=== PATIENT | male | born 1985 | race American Indian/Alaskan Native ===

== ENCOUNTER 2017-05-10 16:27 | Emergency (ER) | payer MEDICAID ==
[2017-05-10] MEDS ORDERED: PERCOCET 5/325 PO ONE (19:47)
[2017-05-10] MEDS ORDERED: FLEXERIL PO ONE (19:47)
[2017-05-10] MEDS ORDERED: TORADOL IM ONE (19:47)
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
[2017-05-10 20:42] VITALS: BP 168/114
--- NOTE | 2017-05-10 20:52 | XRay Report ---
FINAL REPORT PROCEDURE: XR KNEE BILAT 3V TECHNIQUE: Bilateral knee radiographs, 3 views. HISTORY: fall, knee pain COMPARISON: No prior studies are available for comparison. FINDINGS: Fracture (s) and/or Dislocation(s): None . Joint space(s): Normal. Soft tissues: Normal. Bone mineralization: Normal. Foreign bodies: None. IMPRESSION: Normal Examination.
--- NOTE | 2017-05-10 20:53 | XRay Report ---
FINAL REPORT PROCEDURE: XR PELVIS 1-2V TECHNIQUE: Pelvis radiograph, AP view. CPT 08848 HISTORY: fall, pelvic pain COMPARISON: No prior studies are available for comparison. FINDINGS: Fracture(s): None . Joint spaces: Moderately advanced degenerative change of the right and left hips. There are abnormal densities of the femoral heads with probable avascular necrosis. There spurring of the femoral heads and acetabula.. Soft tissues: Normal . Foreign bodies: None . Bone mineralization: Normal . 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 No acute fracture seen.
== END 2017-05-10 22:01 | disposition home or self-care (01) ==
LOC: ED 16:27
DX: M25.561 Pain in right knee (principal); M25.562 Pain in left knee; M25.551 Pain in right hip; M25.552 Pain in left hip; W10.9XXA Fall (on) (from) unspecified stairs and steps, initial encounter; Y93.9 Activity, unspecified; Y92.9 Unspecified place or not applicable; Y99.9 Unspecified external cause status
CPT/HCPCS: 72170; 73562; 96372; 99283; J1885

== ENCOUNTER 2017-06-16 18:08 | Emergency (ER) | payer MEDICAID ==
--- NOTE | 2017-06-16 18:35 | Emergency Department Report ---
Stated Complaint: PISSIBLE BITE UNDER ARM Time Seen by Provider: 06/16/17 18:33 - HPI History of Present Illness: PT states he felt a painful bump under his R arm a few hours ago. - ROS Review of Systems: - fever - chills + bump under R axilla, pt states it feels warm - Exam Physical Exam: PT looks, well, non toxic steady gait with cane R axilla with indurated area MSE screening note: Focused history and physical exam performed. Due to findings the following was ordered: ED Disposition for MSE Condition: Stable
[2017-06-17] MEDS ORDERED: NORCO 5/325 PO ONE (02:09)
[2017-06-17] MEDS ORDERED: TORADOL IM ONE (02:09)
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
[2017-06-17 03:19] VITALS: BP 140/86
== END 2017-06-17 03:12 | disposition home or self-care (01) ==
LOC: ED 18:08
DX: K02.9 Dental caries, unspecified (principal); K05.10 Chronic gingivitis, plaque induced; R59.1 Generalized enlarged lymph nodes; F20.9 Schizophrenia, unspecified; J45.909 Unspecified asthma, uncomplicated; I10 Essential (primary) hypertension; F17.200 Nicotine dependence, unspecified, uncomplicated
CPT/HCPCS: 96372; 99282; J1885

== ENCOUNTER 2017-08-08 17:14 | Emergency (ER) | payer MEDICAID ==
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
[2017-08-08 18:58] LABS: Basophils % (Auto) 0.4 % (0.0-1.8); Eosinophils % (Auto) 2.6 % (0.0-4.3); Hemoglobin 13.5 gm/dl (11.8-15.2); Mean Corpuscular HGB Conc 34 % (32-34); Mean Corpuscular Hemoglobin 31 pg (28-32); Mean Corpuscular Volume 92 fl (84-94); Platelet Count 231 K/mm3 (140-440); Red Blood Count 4.35 M/mm3 (3.65-5.03); Red Cell Distribution Width 13.2 % (13.2-15.2); White Blood Count 3.8 K/mm3 (4.5-11.0)
[2017-08-08 19:23] LABS: Alanine Aminotransferase 34 units/L (7-56); Albumin 4.7 g/dL (3.9-5); Albumin/Globulin Ratio 1.5 %; Alkaline Phosphatase 94 units/L (35-129); Anion Gap 20 mmol/L; BUN/Creatinine Ratio 7; Blood Urea Nitrogen 4 mg/dL (9-20); Calcium 9.8 mg/dL (8.4-10.2); Carbon Dioxide 27 mmol/L (22-30); Glucose 133 mg/dL (75-100); Potassium 3.6 mmol/L (3.6-5.0); Sodium 139 mmol/L (137-145); Total Protein 7.8 g/dL (6.3-8.2)
[2017-08-08 21:45] LABS: Urine Drugs of Abuse Note Disclamer
[2017-08-08 22:13] LABS: Bilirubin,Urine NEG (Negative); Blood,Urine NEG (Negative); Ketones,Urine NEG (Negative); Leukocyte Esterase,Urine NEG (Negative); Nitrite,Urine NEG (Negative); Protein,Urine <15 mg/dL mg/dL (Negative); Urobilinogen,Urine < 2.0 mg/dL (<2.0)
[2017-08-08 22:51] VITALS: BP 124/81
== END 2017-08-09 02:30 ==
LOC: ED 17:14
DX: F23 Brief psychotic disorder (principal); R45.851 Suicidal ideations; I10 Essential (primary) hypertension; F20.9 Schizophrenia, unspecified; J45.909 Unspecified asthma, uncomplicated; F17.200 Nicotine dependence, unspecified, uncomplicated; Z91.018 Allergy to other foods
CPT/HCPCS: 36415; 80053; 80307; 81001; 85025; 99285; G0480; 80320

== ENCOUNTER 2017-08-29 23:39 | Emergency (ER) | payer MEDICAID ==
[2017-08-30 00:43] VITALS: BP 128/86
--- NOTE | 2017-08-30 02:10 | XRay Report ---
FINAL REPORT EXAM: XR KNEE 1-2V RT HISTORY: Rt knee pain SP fall COMPARISON: April 2017 FINDINGS: Two views of right knee obtained. Bony structures are intact. There is a stable tiny 2 millimeter bony fragment at the inferior margin the patella. This may reflect a tiny intra-articular loose body. Joint spaces are preserved. No acute fracture dislocation. IMPRESSION: No acute fracture.
--- NOTE | 2017-08-30 02:11 | XRay Report ---
FINAL REPORT EXAM: XR HIP 2-3V RT HISTORY: Hip pain post fall COMPARISON: None available. FINDINGS: AP view of the pelvis and frogleg view of the right hip obtained. Severe narrowing of the bilateral hip joint spaces with prominent osteophyte along the femoral necks and acetabular rims. Prominent sclerosis along the articular surfaces of the femoral heads and acetabular rims. Mild flattening of the right femoral head. Prominent subchondral cyst formation. No acute fracture dislocation. IMPRESSION: Severe degenerative changes of bilateral hips similar prior study. Minimal flattening of the right femoral head similar prior study. Underlying AVN is not excluded. No definite acute fracture dislocation. No change from prior study.
== END 2017-08-30 04:30 | disposition left against medical advice (07) ==
LOC: ED 23:39
DX: M79.604 Pain in right leg (principal); Z53.21 Procedure and treatment not carried out due to patient leaving prior to being seen by health care provider

== ENCOUNTER 2017-09-15 21:15 | Emergency (ER) | payer MEDICAID ==
[2017-09-16] MEDS ORDERED: MOTRIN PO ONE (07:24)
[2017-09-16] MEDS ORDERED: NORCO 5/325 PO ONE (07:24)
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
--- NOTE | 2017-09-16 08:22 | XRay Report ---
BILATERAL HIPS WITH PELVIS, 3 VIEWS: History: Bilateral hip pain Findings: Bone mineralization is within normal limits. There is no evidence for fracture, dislocation or pelvic diastasis. Severe osteoarthritic changes are identified at both hips which appears stable since 08/30/17. There are likely areas of osteonecrosis in both femoral heads. No acute fracture or malalignment is appreciated Impression: Advanced chronic arthritic changes in both hips with probable osteonecrosis. No significant change is demonstrated since 09/06/17.
[2017-09-16 09:59] VITALS: BP 121/84
== END 2017-09-16 10:04 | disposition home or self-care (01) ==
LOC: ED 21:15
DX: M54.5 Low back pain (principal); M25.552 Pain in left hip; M25.551 Pain in right hip; F20.9 Schizophrenia, unspecified; J45.909 Unspecified asthma, uncomplicated; M10.9 Gout, unspecified; I10 Essential (primary) hypertension; G89.29 Other chronic pain; F17.200 Nicotine dependence, unspecified, uncomplicated; Z91.018 Allergy to other foods
CPT/HCPCS: 73521; 99283

== ENCOUNTER 2018-04-28 23:24 | Emergency (ER) | payer MEDICAID ==
[2018-04-29] MEDS ORDERED: ZOFRAN ODT PO ONE (00:42)
[2018-04-29 01:05] LABS: Basophils % (Auto) 0.2 % (0.0-1.8); Eosinophils % (Auto) 0.5 % (0.0-4.3); Hemoglobin 13.9 gm/dl (11.8-15.2); Lymphocytes # (Auto) 1.1 K/mm3 (1.2-5.4); Mean Corpuscular HGB Conc 35 % (32-34); Mean Corpuscular Hemoglobin 34 pg (28-32); Mean Corpuscular Volume 96 fl (84-94); Monocytes # (Auto) 0.4 K/mm3 (0.0-0.8); Monocytes % (Auto) 8.3 % (0.0-7.3); Platelet Count 222 K/mm3 (140-440); Red Blood Count 4.14 M/mm3 (3.65-5.03); Red Cell Distribution Width 12.6 % (13.2-15.2)
[2018-04-29 01:20] LABS: BUN/Creatinine Ratio 15; Blood Urea Nitrogen 12 mg/dL (9-20); Calcium 10.1 mg/dL (8.4-10.2); Hemolysis Index 1
[2018-04-29 02:14] LABS: Bilirubin,Urine NEG (Negative); Blood,Urine NEG (Negative); Color,Urine Yellow (Yellow); Protein,Urine <15 mg/dL mg/dL (Negative); RBC,Urine < 1.0 /HPF (0.0-6.0); Urobilinogen,Urine < 2.0 mg/dL (<2.0)
[2018-04-29 02:23] LABS: Amphetamine Screen,Urine PRESUMPTIVE NEGATIVE; Benzodiazepines Screen,Urine PRESUMPTIVE NEGATIVE; Methadone Screen,Urine PRESUMPTIVE NEGATIVE; Opiate Screen,Urine PRESUMPTIVE NEGATIVE
[2018-04-29 02:36] LABS: Cannabinoid Screen,Urine PRESUMPTIVE POSITIVE; Cocaine Screen,Urine PRESUMPTIVE POSITIVE
[2018-04-29] MEDS ORDERED: ULTRAM PO ONE (10:20)
--- NOTE | 2018-04-29 10:24 | Emergency Department Report ---
Chief Complaint: Abdominal Pain Stated Complaint: ABD PAIN/DRUG REHAB Time Seen by Provider: 04/29/18 10:09 - HPI History of Present Illness: 32-year-old Lebanese male presents to the emergency department with a complaint of a few days of upper abdominal pain, nausea and vomiting. The patient admits to drinking heavily recently, while taking his psychiatric medications. He does have a history of previous pancreatitis. He also complains of chronic hip pain with a history of avascular necrosis and says that he missed his recent appointments through [place] regarding this. He has not taken anything for her symptoms. Presentation. He says that the nausea and vomiting has improved since getting Zofran through triage. - ROS Review of Systems: Positive for abdominal pain, nausea, vomiting, hip pain Negative for fever, dysuria, chest pain, shortness of breath - Exam Vital Signs: Vital Signs 04/28/18 04/29/18 04/29/18 23:43 00:25 06:50 Temperature 98.9 F 98.9 F 97.8 F Pulse Rate 121 H 117 H 92 H Respiratory 24 18 20 Rate Blood Pressure 123/69 123/69 118/86 O2 Sat by Pulse 97 96 97 Oximetry 04/29/18 06:56 Temperature 97.8 F Pulse Rate 92 H Respiratory 20 Rate Blood Pressure 118/86 O2 Sat by Pulse 97 Oximetry Physical Exam: Heart and lungs sounds are normal to auscultation. Mild tachycardia. There is some upper abdominal tenderness to palpation. MSE screening note: Focused history and physical exam performed. Due to findings the following was ordered: Patient's labs are unremarkable as far except for some mild dehydration and a urine drugs positive for cocaine. Patient also appears to have some elevated blood sugar levels from about 10 hours ago without any history of diabetes. I have added LFTs and lipase, an Accu-Chek. X-rays of the abdomen and bilateral hips. ED Medical Decision Making - Lab Data Result diagrams: 04/29/18 00:33 04/29/18 00:33 ED Disposition for MSE Condition: Stable Referrals: PRIMARY CARE, [Primary Care Provider] - 3-5 Days
[2018-04-29 10:45] LABS: Alanine Aminotransferase 38 units/L (7-56); Albumin 4.6 g/dL (3.9-5); Lipase 27 units/L (13-60)
[2018-04-29 10:56] LABS: Bilirubin,Direct < 0.2 mg/dL (0-0.2)
--- NOTE | 2018-04-29 11:12 | XRay Report ---
ABDOMEN, 2 views: History: Abdominal pain. There is no evidence of free air beneath the diaphragms. The gas pattern within the abdomen is unremarkable. There is no evidence of bowel dilatation, significant air-fluid levels, or pathologic calcifications. Organ shadows are unremarkable. Cholecystectomy changes are noted. IMPRESSION: Unremarkable abdomen.
--- NOTE | 2018-04-29 11:12 | XRay Report ---
BILATERAL HIPS WITH PELVIS, 3 VIEWS: History: Hip pain, avascular necrosis. Findings: Compared to 09/16/17 severe osteoarthritic changes are again identified at both hips. Avascular necrosis of both femoral heads is also suspected, right greater than left. There appears to be early fragmentation of the superior right femoral head which is a new finding since the comparison exam. Left hip findings are relatively stable. The pelvis, sacrum and SI joints are unremarkable. Impression: Avascular necrosis of both femoral heads is suspected with severe degenerative changes. There appears to be mild progression of disease in the right hip since the previous exam as described above.
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
[2018-04-29] MEDS ORDERED: K-DUR PO ONE (12:45)
[2018-04-29 13:02] VITALS: BP 120/81
== END 2018-04-29 12:57 | disposition home or self-care (01) ==
LOC: ED 23:24
DX: M87.850 Other osteonecrosis, pelvis (principal); K52.9 Noninfective gastroenteritis and colitis, unspecified; I10 Essential (primary) hypertension; J45.909 Unspecified asthma, uncomplicated; F12.10 Cannabis abuse, uncomplicated; Z91.018 Allergy to other foods
CPT/HCPCS: 36415; 73521; 74019; 80048; 80074; 80307; 81001; 82962; 83690; 85025; 99284; G0480; 80320; Q0162

== ENCOUNTER 2018-10-11 17:10 | Emergency (ER) | payer MEDICAID ==
[2018-10-11 17:26] VITALS: BP 154/103
[2018-10-11] MEDS ORDERED: IBUPROFEN PO ONE (18:36)
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
== END 2018-10-11 19:20 | disposition home or self-care (01) ==
LOC: ED 17:10
DX: M25.50 Pain in unspecified joint (principal); I10 Essential (primary) hypertension; F43.10 Post-traumatic stress disorder, unspecified; F20.9 Schizophrenia, unspecified; F32.9 Major depressive disorder, single episode, unspecified; M10.9 Gout, unspecified; G89.29 Other chronic pain; F17.200 Nicotine dependence, unspecified, uncomplicated; F12.10 Cannabis abuse, uncomplicated; Z79.899 Other long term (current) drug therapy; Z91.018 Allergy to other foods; Z88.6 Allergy status to analgesic agent
CPT/HCPCS: 99282

== ENCOUNTER 2018-12-21 21:56 | Emergency (ER) | payer MEDICAID ==
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
[2018-12-21 22:36] LABS: Basophils # (Auto) 0.1 K/mm3 (0.0-0.1); Basophils % (Auto) 1.1 % (0.0-1.8); Eosinophils # (Auto) 0.4 K/mm3 (0.0-0.4); Eosinophils % (Auto) 8.3 % (0.0-4.3); Hematocrit 38.5 % (35.5-45.6); Hemoglobin 13.1 gm/dl (11.8-15.2); Lymphocytes # (Auto) 1.9 K/mm3 (1.2-5.4); Lymphocytes % (Auto) 39.1 % (13.4-35.0); Mean Corpuscular HGB Conc 34 % (32-34); Mean Corpuscular Volume 94 fl (84-94); Monocytes # (Auto) 0.4 K/mm3 (0.0-0.8); Monocytes % (Auto) 7.5 % (0.0-7.3); Platelet Count 294 K/mm3 (140-440); Red Blood Count 4.11 M/mm3 (3.65-5.03); Red Cell Distribution Width 13.5 % (13.2-15.2)
[2018-12-21 22:45] LABS: BUN/Creatinine Ratio 19; Blood Urea Nitrogen 15 mg/dL (9-20); Calcium 9.1 mg/dL (8.4-10.2); Hemolysis Index 13
[2018-12-22 00:02] LABS: Bilirubin,Urine NEG (Negative); Blood,Urine NEG (Negative); Color,Urine Yellow (Yellow); Mucus,Urine FEW /HPF; Protein,Urine <15 mg/dL mg/dL (Negative)
[2018-12-22 00:10] LABS: Amphetamine Screen,Urine PRESUMPTIVE NEGATIVE; Benzodiazepines Screen,Urine PRESUMPTIVE NEGATIVE; Methadone Screen,Urine PRESUMPTIVE NEGATIVE; Opiate Screen,Urine PRESUMPTIVE NEGATIVE
[2018-12-22 00:48] LABS: Cannabinoid Screen,Urine PRESUMPTIVE POSITIVE; Cocaine Screen,Urine PRESUMPTIVE POSITIVE
[2018-12-22] MEDS ORDERED: GEODON IM PRN (10:14)
[2018-12-22] MEDS ORDERED: WATER FOR INJ (PF) ONE (10:24)
[2018-12-22] MEDS ORDERED: PROVENTIL IH ONE (18:45)
[2018-12-22 19:59] VITALS: BP 156/100
== END 2018-12-22 19:59 ==
LOC: EEVIPCON 21:56 → ED 21:56
DX: F20.9 Schizophrenia, unspecified (principal); F43.10 Post-traumatic stress disorder, unspecified; F32.9 Major depressive disorder, single episode, unspecified; F17.200 Nicotine dependence, unspecified, uncomplicated; F12.10 Cannabis abuse, uncomplicated; I10 Essential (primary) hypertension; J45.909 Unspecified asthma, uncomplicated; M10.9 Gout, unspecified; Z88.5 Allergy status to narcotic agent; Z91.018 Allergy to other foods
CPT/HCPCS: 36415; 80048; 80307; 81001; 85025; 94640; 96372; 99285; G0480; J3486; 80320

== ENCOUNTER 2019-02-08 20:42 | Emergency (ER) | payer MEDICAID ==
--- NOTE | 2019-02-08 20:57 | Emergency Department Report ---
Blank Doc - Documentation Documentation: 33 y o male presents to ED s/p fall 2 days ago xr ordered ACC Eval
--- NOTE | 2019-02-08 22:01 | XRay Report ---
PROCEDURE: XR HIPS BILAT 2V W/PELVIS TECHNIQUE: RIGHT and LEFT hip radiographs, 2 views. HISTORY: pain/fall COMPARISONS: None . FINDINGS: Severe degree deformities are noted involving bilateral femoral heads with Sclerotic changes and displace the bilateral acetabula. Diffuse narrowing of bilateral joint spaces i s noted. An acute fracture is not identified. Soft tissues are unremarkable. IMPRESSION: Findings are consistent with advanced changes of bilateral femoral head avascular necrosi s with superimposed osteoarthritis and acetabular dysplasia. This document is electronically signed by Mateusz Jimenez MD., Feb 08 2019 10:00:07 PM ET
[2019-02-09] MEDS ORDERED: TORADOL IM ONE (00:32)
[2019-02-09] MEDS ORDERED: DECADRON IM ONE (00:32)
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
[2019-02-09 01:53] VITALS: BP 145/90
== END 2019-02-09 01:53 | disposition home or self-care (01) ==
LOC: ED 20:42
DX: M25.551 Pain in right hip (principal); M25.552 Pain in left hip; I10 Essential (primary) hypertension; J45.909 Unspecified asthma, uncomplicated; M10.9 Gout, unspecified; F17.200 Nicotine dependence, unspecified, uncomplicated; F12.10 Cannabis abuse, uncomplicated; Z88.5 Allergy status to narcotic agent; Z91.018 Allergy to other foods
CPT/HCPCS: 73521; 96372; 99283; J1100; J1885

== ENCOUNTER 2019-03-20 15:44 | Emergency (ER) | payer MEDICAID ==
[2019-03-20] MEDS ORDERED: NORCO 5/325 PO ONE (18:36)
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
[2019-03-20 19:28] VITALS: BP 161/99
== END 2019-03-20 19:28 | disposition home or self-care (01) ==
LOC: ED 15:44
DX: M54.16 Radiculopathy, lumbar region (principal); G89.29 Other chronic pain; M13.851 Other specified arthritis, right hip; M13.852 Other specified arthritis, left hip; I10 Essential (primary) hypertension; F43.10 Post-traumatic stress disorder, unspecified; F32.9 Major depressive disorder, single episode, unspecified; J45.909 Unspecified asthma, uncomplicated; F17.200 Nicotine dependence, unspecified, uncomplicated; F20.9 Schizophrenia, unspecified; F12.10 Cannabis abuse, uncomplicated; Z79.899 Other long term (current) drug therapy; Z98.890 Other specified postprocedural states; Z87.39 Personal history of other diseases of the musculoskeletal system and connective tissue; Z87.19 Personal history of other diseases of the digestive system; Z91.018 Allergy to other foods; Z88.6 Allergy status to analgesic agent

== ENCOUNTER 2019-04-28 22:51 | Emergency (ER) | payer MEDICAID ==
[2019-04-28 23:28] LABS: Basophils % (Auto) 0.8 % (0.0-1.8); Eosinophils # (Auto) 0.2 K/mm3 (0.0-0.4); Eosinophils % (Auto) 3.8 % (0.0-4.3); Hematocrit 39.6 % (35.5-45.6); Hemoglobin 13.3 gm/dl (11.8-15.2); Lymphocytes # (Auto) 1.6 K/mm3 (1.2-5.4); Lymphocytes % (Auto) 39.4 % (13.4-35.0); Mean Corpuscular HGB Conc 34 % (32-34); Mean Corpuscular Volume 94 fl (84-94); Monocytes # (Auto) 0.3 K/mm3 (0.0-0.8); Monocytes % (Auto) 6.6 % (0.0-7.3); Platelet Count 254 K/mm3 (140-440); Red Blood Count 4.21 M/mm3 (3.65-5.03); Red Cell Distribution Width 12.8 % (13.2-15.2)
[2019-04-28] MEDS ORDERED: GEODON IM ONE (23:30)
[2019-04-28] MEDS ORDERED: WATER FOR INJ Sterile (PF) 10 ML ONE (23:36)
[2019-04-28 23:43] LABS: BUN/Creatinine Ratio 8; Blood Urea Nitrogen 6 mg/dL (9-20); Calcium 9.6 mg/dL (8.4-10.2); Hemolysis Index 2
[2019-04-28 23:55] LABS: Bilirubin,Urine NEG (Negative); Blood,Urine NEG (Negative); Color,Urine Straw (Yellow); Protein,Urine <15 mg/dL mg/dL (Negative); Urobilinogen,Urine < 2.0 mg/dL (<2.0)
[2019-04-29 00:33] LABS: Cannabinoid Screen,Urine PRESUMPTIVE POSITIVE; Cocaine Screen,Urine PRESUMPTIVE POSITIVE
[2019-04-29 00:38] LABS: Amphetamine Screen,Urine PRESUMPTIVE NEGATIVE; Benzodiazepines Screen,Urine PRESUMPTIVE NEGATIVE
[2019-04-29 00:39] LABS: Methadone Screen,Urine PRESUMPTIVE NEGATIVE; Opiate Screen,Urine PRESUMPTIVE NEGATIVE
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
[2019-04-29] MEDS ORDERED: PROVENTIL IH ONE (05:05)
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
[2019-04-29 15:54] LABS: Alanine Aminotransferase 15 units/L (7-56); Albumin 4.3 g/dL (3.9-5); BUN/Creatinine Ratio 15; Blood Urea Nitrogen 9 mg/dL (9-20); Calcium 9.2 mg/dL (8.4-10.2); Hemolysis Index 2
[2019-04-29] MEDS ORDERED: HYDROCORTISONE CR TP ONE (19:15)
[2019-04-29 21:11] VITALS: BP 133/83
[2019-04-29] MEDS ORDERED: MELATONIN PO SCH (22:00)
[2019-04-29 22:16] LABS: Chol/HDL Ratio 4.34 %
== END 2019-04-29 21:50 ==
LOC: EEVIPCON 22:51 → ED 22:51
DX: F14.920 Cocaine use, unspecified with intoxication, uncomplicated (principal); F12.920 Cannabis use, unspecified with intoxication, uncomplicated; I10 Essential (primary) hypertension; J45.909 Unspecified asthma, uncomplicated; F20.9 Schizophrenia, unspecified; F32.9 Major depressive disorder, single episode, unspecified; F43.10 Post-traumatic stress disorder, unspecified; F17.200 Nicotine dependence, unspecified, uncomplicated; M10.9 Gout, unspecified; G89.29 Other chronic pain; Z91.018 Allergy to other foods; Z79.899 Other long term (current) drug therapy
CPT/HCPCS: 36415; 80048; 80053; 80061; 80307; 81001; 82550; 82962; 85025; 94640; 96372; 99285; J3486; 80320; 94644; A6250; G0480

== ENCOUNTER 2020-07-04 02:35 | Emergency (ER) | payer MEDICAID ==
--- NOTE | 2020-07-04 04:36 | Event Note ---
Date: 07/04/20 Medical screening note: 34-year-old gentleman with history of substance-induced psychosis, typically gets Invega injection at the [facility], presenting to the ER today with a complaint of painless nontraumatic "cocaine overdose." In the emergency room, patient presents as disorganized, reportedly urinated and defecated on himself, but is moving 4 extremities and protecting airway[address] patient on hold, obtain EKG, screening laboratory studies, reassess when clinically sober
[2020-07-04 05:01] LABS: Hematocrit 39.1 % (35.5-45.6); Hemoglobin 13.2 gm/dl (11.8-15.2)
[2020-07-04 05:45] LABS: BUN/Creatinine Ratio 11; Blood Urea Nitrogen 9 mg/dL (9-20); Calcium 8.7 mg/dL (8.4-10.2); Hemolysis Index 13
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
[2020-07-04] MEDS ORDERED: SODIUM CHLORIDE 0.9% 1000 ML 1,000 ML IV ONE (06:46)
[2020-07-04 07:39] VITALS: BP 128/87
== END 2020-07-04 07:45 | disposition home or self-care (01) ==
LOC: ED 02:35
DX: R73.9 Hyperglycemia, unspecified (principal); R00.2 Palpitations; F14.10 Cocaine abuse, uncomplicated; I10 Essential (primary) hypertension; R56.9 Unspecified convulsions; F20.9 Schizophrenia, unspecified; F32.9 Major depressive disorder, single episode, unspecified; J45.909 Unspecified asthma, uncomplicated; F17.200 Nicotine dependence, unspecified, uncomplicated; F12.10 Cannabis abuse, uncomplicated; Z98.890 Other specified postprocedural states; Z79.899 Other long term (current) drug therapy; Z91.018 Allergy to other foods; Z88.8 Allergy status to other drugs, medicaments and biological substances
CPT/HCPCS: 36415; 80048; 82550; 83735; 85014; 85018; 85049; 93005; 96360; 99284; J7030; 80320; G0480

== ENCOUNTER 2021-12-29 22:01 | Emergency (ER) | payer MEDICAID ==
[2021-12-29] MEDS ORDERED: SODIUM CHLORIDE 0.9% 1000 ML 1,000 ML IV ONE (23:35)
[2021-12-30 00:01] LABS: Bilirubin,Urine NEG (Negative); Blood,Urine NEG (Negative); Color,Urine Colorless (Yellow); Protein,Urine <15 mg/dL mg/dL (Negative); Urobilinogen,Urine < 2.0 mg/dL (<2.0)
[2021-12-30 00:23] LABS: Basophils % (Auto) 0.5 % (0.0-1.8); Eosinophils % (Auto) 0.8 % (0.0-4.3); Hematocrit 39.2 % (35.5-45.6); Hemoglobin 12.9 gm/dl (11.8-15.2); Lymphocytes # (Auto) 1.3 K/mm3 (1.2-5.4); Lymphocytes % (Auto) 21.4 % (13.4-35.0); Mean Corpuscular HGB Conc 33 % (32-34); Mean Corpuscular Volume 93 fl (84-94); Monocytes # (Auto) 0.4 K/mm3 (0.0-0.8); Monocytes % (Auto) 6.5 % (0.0-7.3); Platelet Count 276 K/mm3 (140-440); Red Blood Count 4.21 M/mm3 (3.65-5.03); Red Cell Distribution Width 12.5 % (13.2-15.2)
[2021-12-30 00:44] LABS: Alanine Aminotransferase 15 units/L (7-56); Blood Urea Nitrogen 13 mg/dL (9-20); Calcium 8.4 mg/dL (8.4-10.2); Hemolysis Index 7
[2021-12-30 00:50] LABS: BUN/Creatinine Ratio 22
[2021-12-30] MEDS ORDERED: ONDANSETRON 4 MG/2 ML INJ IV ONE (00:56)
[2021-12-30] MEDS ORDERED: FAMOTIDINE 20 MG/2 ML INJ IV ONE (00:56)
[2021-12-30] MEDS ORDERED: KETOROLAC 30 MG/1 ML INJ IV ONE (00:56)
[2021-12-30] MEDS ORDERED: SODIUM CHLORIDE 0.9% 1000 ML 1,000 ML IV ONE (02:39)
[2021-12-30] MEDS ORDERED: INSULIN REGULAR, HUMAN 100 UNITS/1 ML IV ONE (03:21)
[2021-12-30] MEDS ORDERED: DICYCLOMINE 20 MG TAB PO ONE (03:47)
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
[2021-12-30 04:49] VITALS: BP 130/97
== END 2021-12-30 04:50 | disposition home or self-care (01) ==
LOC: ED 22:01
DX: E11.65 Type 2 diabetes mellitus with hyperglycemia (principal); E87.1 Hypo-osmolality and hyponatremia; G89.4 Chronic pain syndrome; Z91.14 Patient's other noncompliance with medication regimen; I10 Essential (primary) hypertension; E11.9 Type 2 diabetes mellitus without complications; R56.9 Unspecified convulsions; F32.A Depression, unspecified; J45.909 Unspecified asthma, uncomplicated; Z98.890 Other specified postprocedural states; Z79.899 Other long term (current) drug therapy; F17.200 Nicotine dependence, unspecified, uncomplicated; Z91.02 Food additives allergy status; Z91.09 Other allergy status, other than to drugs and biological substances
CPT/HCPCS: 36415; 80053; 81001; 82962; 83690; 85025; 96361; 96374; 96375; 99283; J1885; J2405; J3490; J7030; Q0162; Q9967; J1815

== ENCOUNTER 2021-12-31 22:05 | Emergency (ER) | payer MEDICAID ==
[2021-12-31 22:11] VITALS: BP 148/98
== END 2022-01-01 01:25 | disposition left against medical advice (07) ==
LOC: ED 22:05
DX: R73.9 Hyperglycemia, unspecified (principal); Z53.21 Procedure and treatment not carried out due to patient leaving prior to being seen by health care provider

== ENCOUNTER 2022-02-24 18:36 | Emergency (ER) | payer MEDICAID ==
[2022-02-24] MEDS ORDERED: HALOPERIDOL LACTATE 5 MG/1 ML INJ IM PRN (19:24)
[2022-02-24] MEDS ORDERED: LORazepam 2 MG/ML VIAL IM PRN (19:24)
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
[2022-02-24 20:02] LABS: Hematocrit 44.6 % (35.5-45.6); Hemoglobin 14.9 gm/dl (11.8-15.2); Mean Corpuscular HGB Conc 33 % (32-34); Mean Corpuscular Volume 97 fl (84-94); Platelet Count 238 K/mm3 (140-440); Red Blood Count 4.58 M/mm3 (3.65-5.03); Red Cell Distribution Width 13.3 % (13.2-15.2)
[2022-02-24 20:20] LABS: BUN/Creatinine Ratio 10; Blood Urea Nitrogen 9 mg/dL (9-20); Calcium 9.5 mg/dL (8.4-10.2); Hemolysis Index 38
[2022-02-25 00:01] LABS: Bilirubin,Urine NEG (Negative); Blood,Urine NEG (Negative); Color,Urine Colorless (Yellow); Mucus,Urine FEW /HPF; Protein,Urine <15 mg/dL mg/dL (Negative); Urobilinogen,Urine < 2.0 mg/dL (<2.0)
[2022-02-25 00:09] LABS: Amphetamine Screen,Urine PRESUMPTIVE NEGATIVE; Benzodiazepines Screen,Urine PRESUMPTIVE NEGATIVE; Cannabinoid Screen,Urine PRESUMPTIVE NEGATIVE; Cocaine Screen,Urine PRESUMPTIVE POSITIVE; Methadone Screen,Urine PRESUMPTIVE NEGATIVE; Opiate Screen,Urine PRESUMPTIVE NEGATIVE
--- NOTE | 2022-02-25 17:14 | Emergency Department Report ---
Blank Doc - Documentation Documentation: Chart reviewed 36-year-old male presented with psychosis and cocaine abuse. Awaiting transfer to inpatient facility for treatment
--- NOTE | 2022-02-25 17:59 | Consultation ---
History of Present Illness - Reason for Consult Consult date: 02/25/22 Reason for consult: SI - History of Present Psychiatric Illness HPI: This patient is a 36-year-old gentleman with a history of psychiatric disease. He presents to the ER acutely psychotic. As per verbal report from nursing team, who in turn received report from police department, patient was reportedly at the [facility] having an evaluation, when he became upset. Reportedly his police officer booking at the [facility] intended to put him on a 1013, but the patient then left the [facility] prior to initiation of the 1013. The police were contacted, and then brought the patient here to this emergency room. The patient reports today that he feels like he has total body pain seco ndary to cancer. He is also hyperverbal, and reports that he is not going to pay for sex anymore, but he can get it wherever he wants. The patient also then goes on to state that he is not suicidal or homicidal. The patient is acutely psychotic, disorganized, hyperverbal, and appears to be responding to internal stimuli. The patient is not accompanied by friends or family at this time for collateral information or additional information. The patient was seen today. He is calm, and cooperative. He says he's here to a "misunderstanding." The patient says he doesn't understand why he is being kept at the hospital about something that was blows out of proportion. The patient says he was seeing his therapist and quoted the kaya [employer] cent's song, " got to be easy cause life is hard." He says the lady kept asking him did that mean he was suicidal. The patient says "I did get upset with her because I had been telling her I needed housing, so I did go off on her." The patient says "but I'm not suicidal or homicidal." He denies hallucinations of any kind. The patient says he takes invega sustenna and had it yesterday prior to coming here. He denies any illicit drugs, but is positive for cocaine. The patient says he has cancer and had an appointment today. He says he needs to get out of here and take his cancer medication. PAST PSYCHIATRIC HISTORY: Diagnoses: schizoaffective disorder Suicide attempts or Self-harm behavior: Denies Prior psychiatric hospitalizations: Yes Substance Abuse history: cocaine Previous psychiatric medications tried: Denies Outpatient treatment: Denies PAST MEDICAL HISTORY: pancreatic cancer Family Psychiatric History: None reported SOCIAL HISTORY Marital Status: single Living Arrangements: Homeless Employment Status: Retired Access to guns/weapons: Denies Education:Unknown History of Abuse: denies Legal History: denies REVIEW OF SYSTEMS Constitutional: Negative for weight loss ENT: Negative for stridor Respiratory: Negative for cough or hemoptysis All other systems reviewed and are negative MENTAL STATUS EXAMINATION General Appearance: Dressed appropriately Behavior: calm and cooperative Mood: good Affect and affective range: congruent with mood Thought Process: Goal directed Thought content: reality oriented Speech: Normal tone and pace Suicidal Ideation: Denies Homicidal Ideation: Denies Hallucinations: Denies Delusions: None elicited Insight and Judgment: Limited insight and judgment Memory: Limited Attention: attentive Orientation: Alert, oriented Assessment Hx of Schizoaffective Treatment d/c 1013 continue previously prescribed medications Medical: per primary Disposition: Do not recommend acute psychiatric inpatient treatment Will sign off. Thanks Case staffed with Dr. Reyes Medications and Allergies Allergies Allergy/AdvReac Type Severity Reaction Status Date / Time kiwi Allergy Rash Verified 09/15/17 21:43 tramadol Allergy Seizure Verified 08/04/18 18:51 Home Medications Medication Instructions Recorded Confirmed Last Taken Type Sertraline HCl [Zoloft] 20 mg PO QDAY 11/24/13 04/28/19 Unknown History Invega (Nf) 1 mg IM QMONTH 10/11/18 04/28/19 04/23/19 10:00 History Mirtazapine [Remeron] 30 mg PO HS 12/21/18 04/28/19 Unknown History Oxycodone HCl/Acetaminophen 1 each PO Q6HR PRN 04/28/19 04/28/19 Unknown History [Percocet 10/325 mg] Dicyclomine [Bentyl] 20 mg PO Q6H #24 tablet 12/30/21 Unknown Rx Famotidine [Pepcid] 20 mg PO BID #60 tablet 12/30/21 Unknown Rx Ondansetron [Zofran Odt] 4 mg PO Q8HR PRN #15 tab.rapdis 12/30/21 Unknown Rx Active Meds: Active Medications Haloperidol Lactate (Haloperidol Lactate 5 Mg/1 Ml Inj) 5 mg IM Q6HR PRN PRN Reason: Agitation Last Admin: 02/24/22 23:55 Dose: 5 mg Lorazepam (Lorazepam 2 Mg/Ml Vial) 2 mg IM Q4HR PRN PRN Reason: Agitation Last Admin: 02/24/22 23:55 Dose: 2 mg Mental Status Exam - Vital signs Last Vital Signs Temp 98.0 F 02/24/22 19:24 Pulse 90 02/24/22 19:24 Resp 18 02/24/22 19:24 BP 136/85 02/24/22 19:24 Pulse Ox 100 02/24/22 19:24 Results Result Diagrams: 02/24/22 19:38 02/24/22 19:38 Abnormal lab results 02/24/22 02/24/22 02/24/22 Range/Units 19:38 19:38 19:38 MCV (84-94) fl MCH (28-32) pg Sodium 135 L (137-145) mmol/L Carbon Dioxide 20 L (22-30) mmol/L Glucose 126 H (75-100) mg/dL Ur Specific [place] (1.003-1.030) Salicylates < 0.3 L (2.8-20.0) mg/dL Acetaminophen < 5.0 L (10.0-30.0) ug/mL 02/24/22 02/24/22 Range/Units 19:38 22:04 MCV 97 H (84-94) fl MCH 33 H (28-32) pg Sodium (137-145) mmol/L Carbon Dioxide (22-30) mmol/L Glucose (75-100) mg/dL Ur Specific [place] 1.002 L (1.003-1.030) Salicylates (2.8-20.0) mg/dL Acetaminophen (10.0-30.0) ug/mL All other labs normal.
--- NOTE | 2022-02-25 19:18 | Event Note ---
Patient was evaluated mental health window tinter with recommendation to discontinue 1013. See note.
[2022-02-25 20:11] VITALS: BP 106/77
== END 2022-02-25 20:27 | disposition home or self-care (01) ==
LOC: EEVIPCON 18:36 → ED 18:36
DX: F23 Brief psychotic disorder (principal); Z13.30 Encounter for screening examination for mental health and behavioral disorders, unspecified; Z20.822 Contact with and (suspected) exposure to COVID-19; I10 Essential (primary) hypertension; E11.9 Type 2 diabetes mellitus without complications; R56.9 Unspecified convulsions; F32.9 Major depressive disorder, single episode, unspecified; J45.909 Unspecified asthma, uncomplicated; G89.29 Other chronic pain; Z98.890 Other specified postprocedural states; M10.9 Gout, unspecified; F17.290 Nicotine dependence, other tobacco product, uncomplicated; Z88.5 Allergy status to narcotic agent; Z91.018 Allergy to other foods
CPT/HCPCS: 36415; 80048; 80307; 81001; 85027; 96372; 99284; J1630; J2060; U0003; 80320; G0480